=== PATIENT | female | born 1925 | race Caucasian/White ===

== ENCOUNTER 2016-09-01 09:33 | Observation (INO) | payer OTHER ==
--- NOTE | 2016-09-01 09:54 | EDPHY ---
H & P Stated Complaint: possible left hip dislocation, hx sx, happened twice before this month Time Seen by Provider: 09/01/16 09:44 HPI/ROS: CHIEF COMPLAINT: Recurrent left hip pain and deformity HISTORY OF PRESENT ILLNESS: The patient presents to the emergency department with recurrent left hip pain and deformity. The patient does have a prior history of a left hip replacement complicated by dislocation times to since her surgery in 2014. The patient reports that today she was getting up from a chair when she experienced a recurrent dislocation. She reports mild to moderate pain. She denies any acute numbness or weakness in her leg. She did not fall or sustain additional trauma. She reports her last dislocation was in 2015 and required a reduction under general anesthesia. The patient denies any additional acute medical complaints such as fever, chest pain, difficulty breathing or other concerns. REVIEW OF SYSTEMS: A comprehensive 10 point review of systems is otherwise negative aside from elements mentioned in the history of present illness. Source: Patient Exam Limitations: No limitations - Personal History Current Tetanus/Diphtheria Vaccine: Yes Current Tetanus Diphtheria and Acellular Pertussis (TDAP): Yes Tetanus Vaccine Date: WITHIN 10 YRS - Medical/Surgical History Hx Asthma: No Hx Chronic Respiratory Disease: No Hx Diabetes: No Hx Cardiac Disease: Yes Hx Renal Disease: No Hx Cirrhosis: No Hx Alcoholism: No Hx HIV/AIDS: No Hx Splenectomy or Spleen Trauma: No Other PMH: PMH:chronic afib, pacemaker ( medtronic), RA, pseudo gout, htn, left breast cancer. PSH: left hip sx, knee sx - Social History Smoking Status: Never smoked - Physical Exam Exam: General Appearance: Elderly female, no acute distress Head: Atraumatic Eyes: Pupils equal, round, reactive ENT, Mouth: No hemotympanum, no oral trauma Neck: Nontender, trachea midline Respiratory: No chest wall tender, subcutaneous air, lungs clear bilaterally Cardiovascular: Regular rate and rhythm Abdomen: Abdomen is soft and nontender, pelvis stable Skin: No lacerations, No abrasion Back: Kyphotic, no midline tenderness Extremities: Left leg held in internal rotation, shortened. 2+ dorsalis pedis and posterior tibial pulses noted in the left leg. Sensation and motor function intact to light touch and movement in the left foot Neurological: A&Ox3, normal motor function, normal sensory exam Constitutional: Initial Vital Signs Temperature (C) 36.6 C 09/01/16 09:33 Heart Rate 62 09/01/16 09:33 Respiratory Rate 18 09/01/16 09:33 Blood Pressure 169/92 H 09/01/16 09:33 O2 Sat (%) 94 09/01/16 09:33 O2 Delivery Mode Room Air O2 (L/minute) 2 Allergies/Adverse Reactions: Penicillins Allergy (Verified 09/01/16 11:17) Sulfa (Sulfonamide Antibiotics) Allergy (Verified 09/01/16 09:39) most antibiotics Allergy (Uncoded 07/25/14 13:57) Home Medications: Medication Instructions Recorded Benazepril HCl [Lotensin (*)] 20 mg PO DAILY 07/25/14 Calcium Carbonate [Tums 500MG (*)] 500 mg PO PRN PRN 07/25/14 Cholecalciferol Vit D3 [Vitamin D3 1,000 units PO BID 07/25/14 (*)] Vitamin B Complex [B Complex] 1 each PO DAILY 07/25/14 amLODIPine BESYLATE [Norvasc 2.5 2.5 mg PO HS 07/25/14 mg (*)] valACYclovir [Valtrex (*)] 500 mg PO BID PRN 07/25/14 Aspirin [Aspirin 81mg (*)] 81 mg PO HS 04/10/15 Omeprazole [Prilosec 20 mg] 20 mg PO DAILY PRN 04/10/15 Polyethylene Glycol 3350 [Miralax 17 gm PO DAILY 05/05/15 17 gm (*)] Carvedilol [Coreg] 6.25 mg PO BID 10/25/15 Diclofenac Sodium [Voltaren Gel] 1 yaya TP DAILY PRN 10/25/15 HYDROcodone/APAP 10/325 [[place] 1 tab PO Q4-6PRN PRN 10/25/15 10/325] Pyridoxine HCl [Vitamin B-6 100 mg 100 mg PO DAILY 10/25/15 (OTC)] buPROPion XL [Wellbutrin Xl] 150 mg PO DAILY 10/25/15 predniSONE 2.5 mg PO DAILY 10/25/15 Albuterol [Proventil Inhaler HFA 2 puffs IH Q4 PRN 09/01/16 (*)] Tears/Dextran 70/Hypromellose 1 drop EACHEYE Q2 PRN 09/01/16 [Natural Balance Tears (*)] Medical Decision Making - Diagnostics Imaging: Left hip x-ray: Anterior prosthetic left hip dislocation. ED Course/Re-evaluation: I reviewed the patient's past medical records including her ED visit from 2015. I did consult with Dr. Niranjan Diehl who is on-call for the patient's primary orthopedic surgeon Dr. Jesus Desouza. Dr. Diehl evaluated the patient in the emergency department. Given the fact she has an anterior dislocation in a fairly fragile construct he would prefer to perform this under general anesthesia. The patient will be kept in the emergency department with npo status. She will be taken to the operating room for conscious sedation and closed reduction. The patient will be admitted to the hospital the lack of immediate OR availability. Differential Diagnosis: Differential diagnosis considered includes prosthetic hip fracture, prosthetic hip dislocation, pelvic fracture, neurovascular injury Departure - Departure Disposition: [facility] Inpatient Acute Clinical Impression: Dislocation of hip, left, closed Condition: Good Referrals: Francine Chapin MD [Primary Care Provider] - As per Instructions
[2016-09-01] MEDS ORDERED: fentaNYL 100 MCG/2 ML INJ ONE ×3 (10:06→16:43)
[2016-09-01] MEDS ORDERED: KETAMINE 100 MG/10 ML SYR IVP ONE (10:06)
[2016-09-01] MEDS ORDERED: NS 1,000 ML IV SCH (12:45)
[2016-09-01] MEDS ORDERED: DICLOFENAC SODIUM TP PRN (14:06)
[2016-09-01] MEDS ORDERED: ALBUTEROL 60 PUFFS/8 GM MDI IH PRN (14:06)
[2016-09-01] MEDS ORDERED: PANTOPRAZOLE SODIUM 40 MG TAB PO PRN (14:06)
[2016-09-01] MEDS ORDERED: CALCIUM CARBONATE 500 MG CHEWABLE TAB PO PRN (14:06)
[2016-09-01] MEDS ORDERED: valACYclovir 500 MG TAB PO PRN (14:06)
[2016-09-01] MEDS ORDERED: TEARS/DEXTRAN 70/HYPROMELLOSE 15 ML OPHT.BTL EACHEYE PRN (14:06)
[2016-09-01] MEDS ORDERED: HYDROCORTISONE 100 MG/2 ML VIAL IVP ONE (14:27)
--- NOTE | 2016-09-01 14:35 | GHP ---
[f rep st] HISTORY AND PHYSICAL DATE OF ADMISSION: 09/01/2016 CHIEF COMPLAINT: Left hip pain, dislocation. HISTORY OF PRESENT ILLNESS: The patient is a pleasant 89-year-old female who presented to the emergency department earlier today with recurrent left hip pain sustained earlier today, when the patient reports she was getting up from a chair. She states that she does not recall the specific mechanism of injury, though having experienced recurrent dislocation in her left hip, this felt similar; however, she notes slightly more painful than before. The patient is status post left total hip arthroplasty performed by Dr. Desouza in 04/2015. She reports 2 episodes of dislocation on this affected hip, the last being in 2015, which required reduction under general anesthesia, again performed by Dr. Desouza. Today, she reports mild to moderate pain and denies any new onset numbness or tingling into her left leg. She denies sustaining any fall or additional trauma at the time of injury. She also denies any additional acute medical complaints such as fevers, chills, nausea or vomiting, chest pain, difficulty breathing, or any additional concerns. She does note one additional trip to the emergency room since her last dislocation, resulting from a fall where she sustained a head laceration, though she notes this was a mechanical fall and not related to any syncope. She has had no additional concerns or complaints at this time. PAST MEDICAL HISTORY: 1. Hypertension. 2. Osteoporosis. 3. Paroxysmal atrial fibrillation. 4. Implanted pacemaker. 5. Asthma. 6. Rheumatoid arthritis. 7. Pseudogout. 8. GERD. 9. Chronic kidney disease. 10. Chronic anemia. 11. History of multiple joint arthroplasties. PAST SURGICAL HISTORY: Patient reports a past surgical history significant for a foot surgery, hysterectomy, bilateral knee replacements, implanted pacemaker, wrist surgery, rotator cuff surgery, left proximal femur fixation, left total hip arthroplasty. CURRENT MEDICATIONS: Albuterol, amlodipine, aspirin 81 mg, benazepril, Wellbutrin, Tums, carvedilol, vitamin D3, Voltaren gel, [place] 10/325, omeprazole , MiraLAX, prednisone, vitamin B, Natural Balance Tears, Valtrex, and a B complex vitamin. ALLERGIES: Patient reports an allergy to penicillin and sulfa medications. She denies any allergy to metals. SOCIAL HISTORY: Patient denies any current tobacco use. Patient denies any current alcohol consumption. Patient denies any current recreational drug use. The patient notes that she lives alone at [facility], but does have family in [place], noting her sister does not live far. She reports that she does not have anyone who can care for her overnight. REVIEW OF SYSTEMS: A 10-point review of systems was reviewed today with no additional concerns, complaints, or abnormal findings not noted in the HPI or PMH. PHYSICAL EXAMINATION: VITALS: Blood pressure 159/94, heart rate 74 bpm, respirations 18 per minute, O2 sats 98% on 2 LO2, temperature 36.9 degrees Celsius. GENERAL: Patient is a thin, elderly female who presents in mild distress. Patient appears to be in mild to moderate pain when she tries to move her left hip, but otherwise does not appear to be in any significant discomfort. HEENT: NCAT. EOMI. PERRLA. Ears and nares are patent and without discharge. OP is clear. NECK: NTTP, no cervical LAD noted. Trachea midline. RESPIRATORY: CTAB. No increased WOB noted. CARDIOVASCULAR: RRR. ABDOMEN: Soft, NT/ND. EXTREMITIES: Examination of the left lower extremity reveals leg held in slight internal rotation and shortened in appearance. No significant swelling, discoloration is noted. Patient has an intact dorsalis pedis and posterior tibialis pulses in the left lower extremity, equal compared bilaterally, 2+. The patient is intact to light touch, sensation distally and is able to move her left foot. Examination of the right lower extremity is unremarkable. SKIN: Please see above dictation concerning left lower extremity. Otherwise warm and dry. NEUROLOGIC: A and O x3, appropriate mood and affect. Speech is noted to be fluid and fluent. RADIOGRAPHS: Two views of the left hip are reviewed today showing an anterior dislocation of the left hip, status post left hip arthroplasty. No acute fracture is identified. Intact surgical hardware without signs of loosening of proximal femoral fixation. ASSESSMENT: Left hip anterior dislocation, recurrent. Patient is status post left total hip arthroplasty. PLAN: This patient's case and radiographs were reviewed with Dr. Diehl today, who also the patient in clinic. At this time,the patient will be scheduled for a closed reduction to be performed likely under conscious sedation in the operating room. The patient will be likely admitted to the hospital for at least 1 midnight stay, as she does not have anyone who can care for her at home. Treatment options were discussed with the patient today, including the potential need for surgical revision. After a lengthy discussion of the proposed plan, the patient has agreed to proceed with the closed reduction in the operating room, and is tentatively scheduled at 1600 today. Signed informed consent was obtained. All the patient's questions have been answered today, her concerns addressed. She has relayed her understanding of the current care plan and education presented today, and appears pleased with the care she has received today. A hospitalist consult has been ordered due to the patient's age and past medical history status, and to obtain preoperative clearance and for assistance in perioperative management. Their consult is much appreciated. It has been my pleasure to assist in the care of this patient. /[id number]/MODL MTDD
[2016-09-01 14:59] LABS: HEMATOCRIT 30.5 % (38.0-47.0); HEMOGLOBIN 9.7 g/dL (12.6-16.3)
--- NOTE | 2016-09-01 15:05 | GCON ---
[f rep st] CONSULTATION DATE OF CONSULTATION: 09/01/2016 REASON FOR CONSULTATION: I was asked by Dr. Diehl to see the patient in regard to her medical proble ms, including rheumatoid arthritis, and atrial fibrillation. HISTORY OF PRESENT ILLNESS: This is an 89-year-old female who had her left hip replaced in 2014. T mayra, she was sitting on a chair, got to stand up and felt her hip dislocate. This is the 3rd time this has happened since this was replaced. She believes it is the chair that she was sitting on, an d she plans to get rid of the chair as this happened once previously. One previous time she needed to have it reduced in the operating room, the other itself reduced at home. She has no numbness or weakness down her leg, though it is quite painful. At baseline, she is able to walk around the bloc k with a walker. She has been very active all her life. She lives independently at [facility]. S he is taking an aspirin for atrial fibrillation. PAST MEDICAL/SURGICAL HISTORY: 1. Atrial fibrillation, status post pacemaker. 2. Rheumatoid arthritis, on chronic steroids. 3. Pseudogout. 4. Hypertension. 5. History of breast cancer. 6. Mitral valve prolapse. 7. Left hip replacement. 8. Bilateral TKAs. MEDICATIONS: Please see medication reconciliation. ALLERGIES: Penicillin, sulfa and many other antibiotics. Keflex and ciprofloxacin she notably does not have an allergy too. FAMILY HISTORY: Sister has hypertension. SOCIAL HISTORY: She lives at [facility]. She does not drink or smoke. She was an avid skier, she quit smoking at age 71. Her favorite mountain was [place]. REVIEW OF SYSTEMS: 10-point review of systems is conducted and is negative except per HPI. PHYSICAL EXAM: VITAL SIGNS: Blood pressure 170/86, heart rate 62, respiration rate 18, saturating 95% on room air, temperature is 36.8. GENERAL: The patient is a pleasant elderly female who appear s comfortable, in no acute distress. HEENT: Shows her to be normocephalic, atraumatic. CARDIOVASC ULAR: Shows her to be irregularly irregular. There is no murmurs, rubs, or gallops. PULMONARY: S hows her to be in no respiratory distress. She is breathing comfortably. LUNGS: Clear to ausculta tion bilaterally. ABDOMEN: Soft, nontender, nondistended. SKIN: Shows no rash. : Shows no Fo lisa. NEUROLOGIC: Shows her to be alert and oriented x3. She is moving all extremities. PSYCHIATR IC: Exam shows a normal mood and affect. EXTREMITIES: Shows her left leg to be internally rotated . She has sensation intact. Her foot is warm. She has motor intact in her left foot. LABS: These have been ordered and are pending. I reviewed her last INR which was 2.05 back in 2015 . DATA: 1. I personally viewed and interpreted her chest x-ray. This shows significant dextro- and levosco liosis, normal heart size. She has a pacemaker in place. She has significant gas in her stomach an d small bowel. I see nothing acute. 2. Hip x-ray, which I personally reviewed and interpreted, shows left prostatic hip with an anterio r dislocation. 3. I reviewed her chart, including her last admission in 2014 where she was treated post LAY for po stoperative pain. IMPRESSION AND PLAN: An 89-year-old female with a left prosthetic hip dislocation. 1. Left prosthetic hip dislocation: Plan: Operative fixation given her age and other medical prob lems. She is able to attain more than 4 METS at baseline, I think she is reasonable risk for the op erating room at this point. Will continue her beta-elysia perioperatively. 2. Atrial fibrillation status post pacemaker: She is rate controlled. Continue her Coreg and aspi rin for her anticoagulation. 3. Rheumatoid arthritis on chronic steroids: Will give her 1 higher dose of hydrocortisone of 50 m g and follow. If she is hypotensive postoperatively, she may be more steroids. 4. Will follow up on her labs that have been ordered. 5. Will follow up on her EKG which has been ordered. 6. Code status: She would like to be a [id number]. I have placed this in her chart. 7. Venous thromboembolism risk: If she becomes an inpatient. She should get low-dose Lovenox. Ot herwise I will not start any prophylaxis at this point. /[id number]/MODL
[2016-09-01 15:09] LABS: INR 1.09 (0.83-1.16)
[2016-09-01 15:21] LABS: ANION GAP 15 mEq/L (8-16); CALCIUM 9.8 mg/dL (8.5-10.4); CARBON DIOXIDE 22 mEq/l (22-31); CHLORIDE 102 mEq/L (97-110); CREATININE 1.1 mg/dL (0.6-1.0); GLOMERULAR FILTRATION RATE 47; GLUCOSE 94 mg/dL (70-100); POTASSIUM 4.1 mEq/L (3.5-5.2); SODIUM 139 mEq/L (134-144)
[2016-09-01] MEDS: CARVEDILOL 6.25 MG TAB PO SCH ×2 (15:33→21:00)
[2016-09-01] MEDS ORDERED: HYDROCORTISONE 100 MG/2 ML VIAL ONE (15:37)
--- NOTE | 2016-09-01 15:48 | CPEKG ---
Heart Rate: 61 RR Interval: 984 P-R Interval: 144 QRSD Interval: 76 QT Interval: 420 QTC Interval: 423 QRS [place]: -38 T Wave [place]: 41 EKG Severity - ABNORMAL ECG - EKG Impression: ATRIAL-PACED COMPLEXES EKG Impression: LEFT AXIS DEVIATION Electronically Signed By: Yordy Bull 02-Sep-2016 18:26:26
[2016-09-01] MEDS ORDERED: PROPOFOL 200 MG/20 ML VIAL ONE (17:04)
[2016-09-01] MEDS ORDERED: LIDOCAINE 2% 5 ML SDV ONE (17:04)
[2016-09-01] MEDS ORDERED: oxyCODONE IR 5 MG TAB PO PRN (17:27)
[2016-09-01] MEDS ORDERED: PROMETHAZINE HCL 25 MG SUPPR PR PRN (17:27)
[2016-09-01] MEDS ORDERED: traMADol 50 MG TAB PO PRN ×2 (17:27→18:00)
[2016-09-01] MEDS ORDERED: ONDANSETRON DISINTEGRATING 4 MG TAB PO PRN (17:27)
[2016-09-01] MEDS ORDERED: DIPHENOXYLATE/ATROPINE LOMOTIL 1 TAB PO PRN (17:27)
[2016-09-01] MEDS ORDERED: BISACODYL 10 MG SUPP PR PRN (17:27)
[2016-09-01] MEDS ORDERED: METOCLOPRAMIDE 10 MG/2 ML VIAL IVP PRN (17:27)
[2016-09-01] MEDS ORDERED: TEMAZEPAM 15 MG CAP PO PRN (17:27)
[2016-09-01] MEDS ORDERED: MAGNESIUM HYDROXIDE 30 ML UDCUP PO PRN (17:27)
[2016-09-01] MEDS ORDERED: ONDANSETRON 4 MG/2 ML VIAL IVP PRN (17:27)
[2016-09-01] MEDS ORDERED: diphenhydrAMINE 25 MG CAP PO PRN (17:27)
[2016-09-01] MEDS ORDERED: CYCLOBENZAPRINE 10 MG TAB PO PRN (17:27)
[2016-09-01] MEDS ORDERED: PHARMACY PAIN CONSULT 1 EA MISC PRN (17:27)
[2016-09-01] MEDS ORDERED: LR 1,000 ML IV SCH (17:30)
[2016-09-01] MEDS ORDERED: HYDROmorphONE/DILAUDID 4 MG TAB PO PRN (17:56)
[2016-09-01] MEDS ORDERED: ACETAMINOPHEN 325 MG TAB PO PRN (18:00)
--- NOTE | 2016-09-01 18:15 | GOP ---
[f rep st] OPERATIVE REPORT DATE OF OPERATION: 09/01/2016 SURGEON: Niranjan Diehl MD PREOPERATIVE DIAGNOSIS: Anterior dislocation, left total hip components. POSTOPERATIVE DIAGNOSIS: Anterior dislocation, left total hip components. PROCEDURE PERFORMED: FINDINGS: DESCRIPTION OF PROCEDURE: PROCEDURE PERFORMED: Closed reduction, left anterior total hip dislocation. INDICATIONS FOR SURGERY: This is an 89-year-old woman who has had a total hip replacement on the le ft side. This has had at least one prior anterior dislocation that was treated by Dr. Jesus Desouza , who was the surgeon who placed the components. She sustained an additional anterior dislocation t mayra and was brought into the [facility] Emergency Department where this was identif ied radiographically. She had just eaten breakfast, and we then waited until her stomach was adequa tely empty for a general anesthetic. She was placed under a general anesthetic, and her hip was red uced. NARRATIVE DESCRIPTION OF THE CASE: After routinely checking the patient's identification and consen t, and the successful induction of mask general anesthetic, the patient's left hip was imaged under the large FluoroScan unit. We proceeded with a longitudinal traction, abduction, a lateral-directed force on the proximal thigh with external rotation and then internal rotation as the head came over the anterior wall of the acetabulum. It essentially snapped back into the acetabulum. Leg lengths were normal. Leg length rotation was symmetric, and when I ranged her hip into flexion or extensio n, I was unable to re-dislocate this. From a radiographic standpoint, it did not appear that the fe moral head was seated fully within the acetabular shell compared to prior x-rays which we compared i n the operating room. There is possibly some soft tissue interposition, but the hip was stable. As such, we allowed the patient to awaken. She will have followup treatment with Dr. Jesus maria r her recurrent dislocation. /[id number]/MODL
[2016-09-01] MEDS: HYDROCODONE/APAP 10/325 TAB PO PRN (20:57)
[2016-09-01] MEDS ORDERED: ASPIRIN 81 MG CHEWABLE TAB PO SCH (21:00)
[2016-09-01] MEDS: CHOLECALCIFEROL VIT D3 1,000 UNITS TAB PO SCH (21:01)
[2016-09-01] MEDS: FAMOTIDINE 20 MG TAB PO SCH (21:02)
[2016-09-01] MEDS: SENNOSIDES/DOCUSATE SODIUM TAB PO SCH (21:02)
[2016-09-01 21:03] VITALS: RESP 16
[2016-09-02] MEDS: HYDROCODONE/APAP 10/325 TAB PO PRN ×3 (01:55→14:43)
[2016-09-02 05:12] LABS: HEMATOCRIT 29.3 % (38.0-47.0); HEMOGLOBIN 9.2 g/dL (12.6-16.3)
[2016-09-02 06:07] LABS: COLOR YELLOW; LEUKOCYTE ESTERASE,URINE 2+ (NEGATIVE); NITRITE,URINE NEGATIVE (NEGATIVE)
[2016-09-02 06:13] LABS: BACTERIA 4+ /hpf (NONE SEEN); WBC,URINE 50-182 /hpf (0-3)
[2016-09-02 07:56] VITALS: BP 173/96; PULSE 60; TEMP 98.4; O2SAT 94
--- NOTE | 2016-09-02 08:29 | HOSPPROG ---
Hospitalist Progress Note Assessment/Plan: Patient is an 89 y/o woman who had her left hip replaced in 2014. Her hip dislocated with standing/ this is the 3rd time this has occurred. At baseline, she is independent/today is my first encounter with the patient. Chart reviewed. *Left prosthetic hip dislocation -s/p reduction on 09/01 -doing well/ ambulating in hallways *Atrial fibrillation -s/p pacermaker/rate controlled -coreg and aspirin *RA -steroids -was given an IV dose yesterday -no hypotension *Pyuria -symptomatic -asked for ua to be cultured -patient says keflex doesn't help, but cipro does -will start treatment and her PCP needs to f/u with urine cx and sensitivities/ has been sensitive and resistant to cipro *anemia -stable *renal insuff -close to baseline *DVT prophylaxis: LMWH *Plan: dc per ortho Subjective: Della is feeling well/ no complaints. Objective: Vital Signs Temp Pulse Resp BP Pulse Ox 36.9 C 60 16 173/96 H 94 09/02/16 07:56 09/02/16 07:56 09/02/16 07:56 09/02/16 07:56 09/02/16 07:56 Laboratory Results 09/02/16 04:38 09/01/16 14:45 09/01/16 09/02/16 09/03/16 05:59 05:59 05:59 Intake Total 1775 Output Total 500 Balance 1275 PT 14.0 SEC (12.0-15.0) 09/01/16 14:45 INR 1.09 (0.83-1.16) 09/01/16 14:45 - Physical Exam Constitutional: no apparent distress, appears nourished, not in pain, other ( thin) Eyes: PERRL Ears, Nose, Mouth, Throat: hard of hearing Respiratory: no respiratory distress Skin: warm Musculoskeletal: generalized weakness Neurologic: AAOx3 Psychiatric: interacting appropriately ICD10 Worksheet Patient Problems: Problems Problem Status Onset Dislocation of hip, left, closed Acute Arthritis, rheumatoid Acute Constipation Acute Femur fracture Acute Left hip pain Acute MRSA (methicillin resistant Staphylococcus aureus) Acute 01/18/16
[2016-09-02] MEDS ORDERED: ENOXAPARIN 40 MG/0.4 ML SYR SC SCH (09:00)
[2016-09-02] MEDS ORDERED: predniSONE 5 MG TAB PO SCH (09:00)
[2016-09-02] MEDS ORDERED: VITAMIN B COMPLEX 1 EA CAP/TAB PO SCH (09:00)
[2016-09-02] MEDS ORDERED: buPROPion XL 150 MG TAB PO SCH (09:00)
[2016-09-02] MEDS ORDERED: ENOXAPARIN 30 MG/0.3 ML SYR SC SCH (09:00)
[2016-09-02] MEDS ORDERED: POLYETHYLENE GLYCOL 3350 17 GM PKT PO SCH (09:00)
[2016-09-02] MEDS: CARVEDILOL 6.25 MG TAB PO SCH (09:47)
[2016-09-02] MEDS: CHOLECALCIFEROL VIT D3 1,000 UNITS TAB PO SCH (09:47)
[2016-09-02] MEDS: SENNOSIDES/DOCUSATE SODIUM TAB PO SCH (09:48)
[2016-09-02] MEDS: FAMOTIDINE 20 MG TAB PO SCH (09:48)
[2016-09-02] MEDS ORDERED: CIPROFLOXACIN 250 MG TAB PO SCH (10:00)
--- NOTE | 2016-09-02 11:44 | SOAPPROG ---
[facility] Progress Note Assessment/Plan: Assessment/Plan: L hip recurrent dislocations s/p LAY in 05/[address] Desouza s/p closed reduction performed by Dr. Diehl on 09/02/2016 -Cont current PO pain meds -Cont PT/OT -Cont SCDs and TEDs for VTE mechanical prophylaxis -Cont Lovenox for VTE chemoprophylaxis - pt is ambulating well, and will be d/c on ASA 81 mg for cont chemoprophylaxis -Ok to d/c to home, pt will follow up w/ Dr. Desouza as an outpatient. 09/02/16 11:39 Subjective: Pt seen up in bed. She states she has no significant pain today, and is much improved since yesterday. She denies any new nonset n/t in her BLE. She states she has been up and ambulating well, denying any instability or increase in pain. She denies any vazquez/f/c/n/v, cp/ sob, abd pain, or bilat post calf pain. She states she is tolerating her medications and diet well. She is anxious to go home, and feels that she is able to manage independently at [facility]. She has no additional concerns or complaints at this time. Objective: Vital Signs Temp Pulse Resp BP Pulse Ox 36.9 C 60 16 173/96 H 94 09/02/16 07:56 09/02/16 07:56 09/02/16 07:56 09/02/16 07:56 09/02/16 07:56 Laboratory Results 09/02/16 04:38 09/01/16 14:45 09/01/16 09/02/16 09/03/16 05:59 05:59 05:59 Intake Total 1775 Output Total 500 Balance 1275 PT 14.0 SEC (12.0-15.0) 09/01/16 14:45 INR 1.09 (0.83-1.16) 09/01/16 14:45 Seen up in bed. A&Ox3, appropriate mood and affect, pleasant and cooperative w / exam. Non-toxic in appearance. LLE is w/out significant swelling, discoloration or deformity. Thigh compartments are supple. Pt moves leg well. Post calves are NTTP, neg Levar's bilat. DNVI BLE. ICD10 Worksheet Patient Problems: Problems Problem Status Onset Dislocation of hip, left, closed Acute Arthritis, rheumatoid Acute Constipation Acute Femur fracture Acute Left hip pain Acute MRSA (methicillin resistant Staphylococcus aureus) Acute 01/18/16
== END 2016-09-02 15:27 | disposition home or self-care (01) ==
LOC: EDUNIT# → F3N 12:38
PROVIDERS: ADMIT Orthopaedic Surgery Hand Surgery; ATTEND Orthopaedic Surgery Hand Surgery
PROC: 0SSBXZZ Reposition Left Hip Joint, External Approach (ICD-10-PCS; principal; 2016-09-01 17:06)
DX: T84.021A Dislocation of internal left hip prosthesis, initial encounter (principal); I48.2 Chronic atrial fibrillation; M06.9 Rheumatoid arthritis, unspecified; N39.0 Urinary tract infection, site not specified; D64.9 Anemia, unspecified; M81.0 Age-related osteoporosis without current pathological fracture; J45.909 Unspecified asthma, uncomplicated; K21.9 Gastro-esophageal reflux disease without esophagitis; N18.9 Chronic kidney disease, unspecified; I12.9 Hypertensive chronic kidney disease with stage 1 through stage 4 chronic kidney disease, or unspecified chronic kidney disease; Z96.653 Presence of artificial knee joint, bilateral; Z88.0 Allergy status to penicillin; Z88.2 Allergy status to sulfonamides; Z79.01 Long term (current) use of anticoagulants; Z79.82 Long term (current) use of aspirin; Z79.52 Long term (current) use of systemic steroids; Z85.3 Personal history of malignant neoplasm of breast; Z95.0 Presence of cardiac pacemaker
CPT/HCPCS: 27266; 71010; 73502; 76001; 93005; 97161; 97165; G0378; G8978; G8979; G8980; G8987; G8988; G8989; J1650; J2704; J3010

== ENCOUNTER 2016-09-12 10:12 | Inpatient (IN) | payer OTHER ==
--- NOTE | 2016-09-12 10:19 | EDPHY ---
HPI/HX/ROS/PE/MDM Narrative: CHIEF COMPLAINT: Left hip pain HPI: The patient is an 89-year-old female with a history of left hip arthroplasty who presents with left hip pain and rotation. She reports that she was bending over her chair this morning when she felt her hip dislocate. This is the 3rd time this has happened to her. She can sometimes stand up to relocate the hip but this did not work this morning. She denies numbness, weakness, paresthesias, or other complaints. REVIEW OF SYSTEMS: Aside from elements discussed in the HPI, a comprehensive 10-point review of systems was reviewed and is negative. PMH: Hypertension, left hip arthroplasty, breast cancer. SOCIAL HISTORY: Lives in [place]. PHYSICAL EXAM: General: Patient is alert, in no acute distress. ENT: Eyes are normal to inspection. ENT inspection normal. Neck: Normal inspection. Full range of motion. Respiratory: No respiratory distress. Breath sounds normal bilaterally. Cardiovascular: Regular rate and rhythm. Strong peripheral pulses. Abdomen: The abdomen is nontender to palpation. There are no peritoneal signs. There are normal bowel sounds. Back: Normal to inspection. No tenderness to palpation. Skin: Normal color. No rash. Warm and dry. Extremities: Left leg internally rotated and shortened. Neuro: Oriented x3. Normal motor function. Normal sensory function. Portions of this note were transcribed by an ED scribe. I personally performed the history, physical exam, and medical decision making; and confirm the accuracy of the information in the transcribed note. ED Course: Left hip x-ray ordered. Patient last ate a small breakfast at 0730 this morning. 1127: Consulted with Dr. Desouza, orthopedics. He will take the patient to the operating room. Study: Left hip X-ray Indication: Dislocation. Results: I viewed the images myself on the PACS system. My interpretation of the images is: left hip dislocation. The radiologist interpretation is pending at the time of this dictation. MDM: This patient presents with recurrent hip dislocation, which will require reduction in the OR. I see no signs of other trauma. General Time Seen by Provider: 09/12/16 10:13 Initial Vital Signs: Initial Vital Signs Temperature (C) 36.8 C 09/12/16 10:15 Heart Rate 62 09/12/16 10:15 Respiratory Rate 16 09/12/16 10:15 Blood Pressure 132/84 H 03/29/17 10:15 O2 Sat (%) 95 09/12/16 10:15 O2 Delivery Mode Room Air Allergies/Adverse Reactions: Penicillins Allergy (Verified 09/12/16 10:30) Sulfa (Sulfonamide Antibiotics) Allergy (Verified 09/12/16 10:30) most antibiotics Allergy (Uncoded 07/25/14 13:57) Home Medications: Medication Instructions Recorded Amlodipine Besylate 09/12/16 Aspirin 09/12/16 Benazepril HCl 09/12/16 Carvedilol 09/12/16 Folic Acid 09/12/16 Lutein 09/12/16 Hinkle 5/325 (*) 09/12/16 Prevacid 09/12/16 Selenium 09/12/16 VITAMIN D 09/12/16 Zinc 09/12/16 buPROPion 09/12/16 predniSONE 09/12/16 Departure - Departure Disposition: To OP Cath/Surgery Clinical Impression: Hip dislocation, left Qualifiers: Encounter type: initial encounter Qualified Code(s): S73.005A - Unspecified dislocation of left hip, initial encounter Condition: Fair Report Scribed for: Payam Landa Report Scribed by: Emeka Garcia Date of Report: 09/12/16 Time of Report: 10:19
[2016-09-12 12:03] LABS: % IMMATURE GRANULYOCYTES 0.3 % (0.0-1.1); ABSOLUTE IMMATURE GRANULOCYTES 0.01 10^3/uL (0.00-0.10); ADD DIFF? NO; ADD MORPH? NO; ADD SCAN? NO; ATYPICAL LYMPHOCYTE FLAG 0 (0-99); FRAGMENT RBC FLAG 0 (0-99); HEMOGLOBIN 9.7 g/dL (12.6-16.3); LEFT SHIFT FLG 0 (0-99); LIPEMIA HEMOLYSIS FLAG 80 (0-99); MEAN CELL HEMOGLOBIN 28.3 pg (27.9-34.1); MEAN CELL HEMOGLOBIN CONCENTR. 31.3 g/dL (32.4-36.7); MEAN CELL VOLUME 90.4 fL (81.5-99.8); MEAN PLATELET VOLUME 9.2 fL (8.7-11.7); PLATELET CLUMPS FLAG 10 (0-99); PLATELET COUNT 232 10^3/uL (150-400); RED BLOOD CELL COUNT 3.43 10^6/uL (4.18-5.33); RED CELL DISTRIBUTION WIDTH 17.1 % (11.5-15.2)
[2016-09-12 12:18] LABS: ANION GAP 14 mEq/L (8-16); CALCIUM 9.9 mg/dL (8.5-10.4); CARBON DIOXIDE 24 mEq/l (22-31); CHLORIDE 101 mEq/L (97-110); CREATININE 1.5 mg/dL (0.6-1.0); GLOMERULAR FILTRATION RATE 33; GLUCOSE 109 mg/dL (70-100); POTASSIUM 4.3 mEq/L (3.5-5.2); SODIUM 139 mEq/L (134-144)
[2016-09-12] MEDS ORDERED: LIDOCAINE 2% 5 ML SDV ONE (12:30)
[2016-09-12] MEDS ORDERED: PROPOFOL 200 MG/20 ML VIAL ONE (12:30)
[2016-09-12] MEDS ORDERED: METOCLOPRAMIDE 10 MG/2 ML VIAL IVP PRN (13:17)
[2016-09-12] MEDS ORDERED: CYCLOBENZAPRINE 10 MG TAB PO PRN (13:17)
[2016-09-12] MEDS ORDERED: PROMETHAZINE HCL 25 MG SUPPR PR PRN (13:17)
[2016-09-12] MEDS ORDERED: TEMAZEPAM 15 MG CAP PO PRN (13:17)
[2016-09-12] MEDS ORDERED: oxyCODONE IR 5 MG TAB PO PRN (13:17)
[2016-09-12] MEDS ORDERED: diphenhydrAMINE 25 MG CAP PO PRN (13:17)
[2016-09-12] MEDS ORDERED: ONDANSETRON DISINTEGRATING 4 MG TAB PO PRN (13:17)
[2016-09-12] MEDS ORDERED: ONDANSETRON 4 MG/2 ML VIAL IVP PRN (13:17)
[2016-09-12] MEDS ORDERED: DIPHENOXYLATE/ATROPINE LOMOTIL 1 TAB PO PRN (13:17)
[2016-09-12] MEDS ORDERED: LR 1,000 ML IV SCH ×2 (13:30)
--- NOTE | 2016-09-12 14:27 | GOP ---
[f rep st] OPERATIVE REPORT DATE OF OPERATION: 09/12/2016 SURGEON: Jesus Desouza MD ANESTHESIA: General. PREOPERATIVE DIAGNOSIS: Periprosthetic dislocation, left hip. POSTOPERATIVE DIAGNOSIS: Periprosthetic dislocation, left hip. PROCEDURE PERFORMED: Left hip reduction under fluoroscopy. FINDINGS: DESCRIPTION OF PROCEDURE: The patient taken to the operating room, administered general anesthesia. Placed in supine position. The left hip was positioned under fluoroscopy. Using a flexion technical internship al rotation distraction maneuver, we were able to relocate the hip. Despite being relocated, the fe moral head was not feeding deeply within the acetabulum. Further re-dislocation relocation efforts produced the same result. We therefore elected to leave this in the position it was in. Postoperat lexy films were requested in recovery room. She was placed in an abduction pillow. COMPLICATIONS: None. /[id number]/MODL
[2016-09-12 14:32] LABS: HEMATOCRIT 32.2 % (38.0-47.0); HEMOGLOBIN 10.2 g/dL (12.6-16.3)
[2016-09-12] MEDS ORDERED: oxyCODONE IR 5 MG TAB ONE (14:33)
[2016-09-12 14:41] LABS: INR 1.03 (0.83-1.16); PROTIME(PATIENT) 13.4 SEC (12.0-15.0)
--- NOTE | 2016-09-12 15:57 | GCON ---
[f rep st] CONSULTATION MEDICINE CONSULTATION. DATE OF CONSULTATION: 09/12/2016 CHIEF COMPLAINT: Left hip dislocation. HISTORY OF PRESENT ILLNESS: The patient is an 89-year-old female, with a history of hypertension, a trial fibrillation, and a recent left total hip arthroplasty, who presented to the emergency departm ent today after suffering her third hip dislocation since her recent hip arthroplasty performed 2016. She bent over to tie her shoes, and felt her hip dislocate. She presented to the emerg ency department with significant pain and a rotation of her left hip. During her prior dislocation events she was able to stand up and the hip relocated spontaneously. This was not successful today, thus she came to the ER. She was found to be neurovascularly intact, with no paresthesias, weaknes s or numbness. She was admitted to the hospital by Dr. Desouza and taken to the operating room for a left hip reduction. She is admitted to the hospital for further management, and a possible repeat s urgery for stabilization. PAST MEDICAL HISTORY: 1. Hypertension. 2. Paroxysmal atrial fibrillation. 3. Osteoporosis. 4. History of pacemaker. 5. Asthma. 6. Rheumatoid arthritis. 7. Pseudogout. 8. GERD. 9. Chronic kidney disease. 10. Chronic anemia. 11. History of multiple joint arthroplasties. PAST SURGICAL HISTORY: 1. Left hip arthroplasty, September 01, 2016. 2. Foot surgery. 3. Hysterectomy. 4. Bilateral knee replacements. 5. Pacemaker. 6. Wrist surgery. 7. Rotator cuff surgery. 8. Left proximal femur fixation. MEDICATIONS: Please see [facility] for a complete, updated outpatient medication list. ALLERGIES: Penicillin and sulfa. SOCIAL HISTORY: Patient lives at an independent living facility at [facility], she has family near by. She is a lifetime nonsmoker, reports rare alcohol use. REVIEW OF SYSTEMS: A 10-point review of systems is obtained, is negative except as per HPI. OBJECTIVE: VITAL SIGNS: Patient is examined in the PACU as she is immediately postoperative. Her current vital signs, temperature is 36.8, blood pressure 177/86, heart rate 62, respiratory rate 16, 98% on room air. GENERAL: The patient is awake, alert, oriented, in no acute distress. HEENT: H ead is atraumatic, normocephalic. Pupils equal, round, react to light. Extraocular muscles are int act. Oropharynx clear. Mucous membranes are moist. NECK: Supple. There is no JVD. HEART: Regu lar rate and rhythm. LUNGS: Clear to auscultation bilaterally. ABDOMEN: Soft, nondistended, nont latisha with normoactive bowel tones. EXTREMITIES: Without cyanosis, clubbing, or edema. There is n o abnormal rotation of her left hip. EXTREMITIES: She has 2+ peripheral pulses palpable in the low er extremities. Extremities are warm. NEUROLOGIC: Exam is grossly nonfocal. LABORATORY DATA: CBC on arrival reveals a normal white count. Postoperative hemoglobin is 10.2. B asic metabolic panel reveals normal electrolytes, creatinine of 1.5, glucose 109, INR is 1.03. Hip x-ray shows a left total hip arthroplasty with dislocation. Pelvis x-ray post reduction shows reduction of the left hip dislocation. ASSESSMENT AND PLAN: The patient is an 89-year-old female with multiple medical problems who presen ts to the emergency department 11 days status post left total hip arthroplasty with acute left hip d islocation. 1. Periprosthetic hip dislocation. Patient is taken to the OR by Dr. Desouza and underwent left hip reduction. I evaluated her in the PACU. She has no pain at this time. She will be admitted to the hospital. It sounds as though Dr. Desouza is considering returning to the operating room for stabili zation and prevention of further dislocations as this was her third dislocation since her recent alfred ángela. Defer further surgical management to the orthopedic team. 2. Hypertension. This is generally well-controlled. We will continue her outpatient antihypertens ernestine once her medication reconciliation is completed. She is a bit hypertensive in the PACU, so we will add some p.r.n. hydralazine if needed. 3. Chronic kidney disease. It seems her baseline creatinine in 2016 has ranged from 1.4 to 1.5, th ough it was as low as 1.1 earlier this month. 4. Paroxysmal atrial fibrillation. She has a pacemaker, and her most recent EKG shows atrial paced complexes. We will check an EKG perioperatively, and continue her aspirin for CVA prophylaxis. 5. Rheumatoid arthritis. It looks as though the patient is on chronic prednisone. This may have c ontributed to her diagnosis of osteoporosis. We will continue her current outpatient dose once her med rec is completed. 6. Asthma. The patient has no evidence of acute exacerbation, we will continue p.r.n. albuterol as needed. 7. Chronic anemia. Her hemoglobin is at or above baseline. We will repeat a hemoglobin and hemato crit in the morning, given expected blood loss postoperatively. 8. Deep venous thrombosis prophylaxis. We will start Lovenox once she is 24 hours postoperative, i f okay with her surgical team. Will defer for now given that the patient reports possible plans ret urn to the OR. DISPOSITION: Patient admitted to inpatient status, as she will likely require greater than 48 hours hospitalization for recovery, and possible repeat surgery. PT/OT evaluations will be requested. /[id number]/MODL
[2016-09-12] MEDS ORDERED: hydrALAZINE 25 MG TAB PO PRN (16:07)
--- NOTE | 2016-09-12 16:08 | CPEKG ---
Heart Rate: 60 RR Interval: 1000 P-R Interval: 148 QRSD Interval: 80 QT Interval: 416 QTC Interval: 416 QRS [place]: -38 T Wave [place]: 16 EKG Severity - ABNORMAL ECG - EKG Impression: ATRIAL-PACED RHYTHM EKG Impression: LEFT AXIS DEVIATION EKG Impression: PROBABLE LEFT VENTRICULAR HYPERTROPHY EKG Impression: No significant change from September 01, 2016 Electronically Signed By: Beltran Weeks 12-Sep-2016 20:20:27
[2016-09-12] MEDS ORDERED: D5W 1/4 NS 1,000 ML IV SCH (16:30)
[2016-09-12] MEDS ORDERED: TEARS/DEXTRAN 70/HYPROMELLOSE 15 ML OPHT.BTL EACHEYE PRN (17:35)
[2016-09-12] MEDS ORDERED: HYDROmorphONE/DILAUDID 1 MG/ML SYR IVP PRN (17:38)
[2016-09-12] MEDS ORDERED: ceFAZolin 2 GM/DEXTROSE 100 ML IV ONE (17:39)
--- NOTE | 2016-09-12 17:52 | GHP ---
[f rep st] PREOP HISTORY AND PHYSICAL DATE OF ADMISSION: 09/12/2016 ADMISSION DIAGNOSIS: Dislocation of left total hip arthroplasty. HISTORY OF PRESENT ILLNESS: The patient is an 89-year-old female who underwent left total hip arthr oplasty several years ago. She has had other issues with the left lower extremity including osteoar thritis of the left knee. Has undergone a primary knee arthroplasty. She subsequently had a fractu re above this requiring a revision hinged total knee arthroplasty. She had weakness between the 2 i mplants and because of this she had bone grafting with a femoral strut graft between the 2 implants. She had done well until a couple weeks ago when she dislocated her hip. This was relocated by my partner, Dr. Diehl. She was discharged home. He was concerned about the integrity of the relocation at that time. She was to see me in the office today, but prior to coming in, she re-dislocated the hip putting her shoes on. She presented to the emergency room. REVIEW OF SYSTEMS: Negative. PAST MEDICAL HISTORY: Positive for hypertension, left total hip arthroplasty, breast cancer, osteoa rthritis of the knees status post total knee arthroplasty, supracondylar femur fracture status post revision, total knee arthroplasty with hinge implant. She resides in an extended care facility. PHYSICAL EXAM: Patient is alert, oriented and cooperative with exam. HEENT: Within normal limits. CHEST: Clear to auscultation. CARDIAC: Regular rate and rhythm. Pulses 2+ dorsalis pedis, post erior tibialis. Sensation is intact in lower extremities. ABDOMEN: Bowel sounds positive. Left l ower extremity is internally rotated and shortened. ASSESSMENT: Posterior dislocation of the left hip. PLAN: Patient to undergo relocation of the left hip under anesthesia. If the relocation is unevent ful, she may be re-discharged. If not, she will be admitted for more definitive surgery. /[id number]/MODL
[2016-09-12] MEDS: ACETAMINOPHEN 325 MG TAB PO SCH (18:04)
[2016-09-12] MEDS: CARVEDILOL 6.25 MG TAB PO SCH (18:06)
[2016-09-12] MEDS: FAMOTIDINE 20 MG TAB PO SCH (20:38)
[2016-09-12] MEDS: HYDROCODONE/APAP 10/325 TAB PO PRN (20:38)
[2016-09-13] MEDS: ACETAMINOPHEN 325 MG TAB PO SCH ×4 (00:05→18:06)
[2016-09-13] MEDS: HYDROCODONE/APAP 10/325 TAB PO PRN ×4 (00:47→18:09)
[2016-09-13 05:39] LABS: HEMOGLOBIN 8.8 g/dL (12.6-16.3)
[2016-09-13 06:06] LABS: CALCIUM 9.3 mg/dL (8.5-10.4); CARBON DIOXIDE 24 mEq/l (22-31); CHLORIDE 101 mEq/L (97-110); CREATININE 1.2 mg/dL (0.6-1.0); GLOMERULAR FILTRATION RATE 42; GLUCOSE 90 mg/dL (70-100); SODIUM 135 mEq/L (134-144)
[2016-09-13 06:17] LABS: ANION GAP 10 mEq/L (8-16); POTASSIUM 3.9 mEq/L (3.5-5.2)
[2016-09-13] MEDS ORDERED: PANTOPRAZOLE SODIUM 40 MG TAB PO PRN (09:00)
[2016-09-13] MEDS: buPROPion XL 150 MG TAB PO SCH (10:11)
[2016-09-13] MEDS: BENAZEPRIL HCL 20 MG TAB PO SCH (10:11)
[2016-09-13] MEDS: predniSONE 5 MG TAB PO SCH (10:12)
[2016-09-13] MEDS: FAMOTIDINE 20 MG TAB PO SCH (10:12)
[2016-09-13] MEDS: CARVEDILOL 6.25 MG TAB PO SCH ×2 (10:17→18:06)
[2016-09-13 12:50] LABS: INR 1.09 (0.83-1.16)
[2016-09-13] MEDS ORDERED: ceFAZolin 1 GM/5 ML SYR ONE (13:39)
[2016-09-13] MEDS ORDERED: MIDAZOLAM 2 MG/2 ML VIAL ONE (14:25)
[2016-09-13] MEDS ORDERED: fentaNYL 100 MCG/2 ML INJ ONE ×3 (14:40→17:33)
[2016-09-13] MEDS ORDERED: PROPOFOL/EMULSION 500 MG/50 ML BOTTLE IV ONE (14:40)
[2016-09-13] MEDS ORDERED: ROPI/epiNEPH/KETOROLAC/morphINE JOINT COCKTAIL IU ONE (15:00)
[2016-09-13] MEDS ORDERED: ROCURONIUM 50 MG/5 ML VIAL ONE ×2 (15:53→15:54)
[2016-09-13] MEDS ORDERED: SUGAMMADEX SODIUM 200 MG/2 ML VIAL IVP ONE (16:41)
[2016-09-13] MEDS ORDERED: ONDANSETRON 4 MG/2 ML VIAL ONE (16:42)
--- NOTE | 2016-09-13 16:53 | POSTOPPROG ---
Post Op Note Date of Operation: 09/13/16 Surgeon: Nini Sharp Advertiser: Babar Sharp Anesthesia: GET(General Endotracheal) Pre-op Diagnosis: Left hip recurrent dislocation Post-op Diagnosis: left hip recurrent dislocation Procedure: Left hip acetabular revision with constrained cup Findings: as above, please see full dication for details Inf/Abcess present in the surg proc area at time of surgery?: No Depth: Deep Incisional (Fascial)
[2016-09-13] MEDS ORDERED: BISACODYL 10 MG SUPP PR PRN (16:54)
[2016-09-13] MEDS ORDERED: PHARMACY PAIN CONSULT 1 EA MISC PRN (16:54)
[2016-09-13] MEDS ORDERED: MAGNESIUM HYDROXIDE 30 ML UDCUP PO PRN (16:54)
[2016-09-13] MEDS ORDERED: LACTULOSE 20 GM/30 ML UDCUP PO PRN (16:54)
--- NOTE | 2016-09-13 17:09 | SOAPPROG ---
SOAP Progress Note Assessment/Plan: Assessment/Plan: L Hip recurrent dislocation s/p closed reduciton on 09/12/2016 s/p Left hip acetabular revision w/ constrained cup, POD#0 -Cont PT/OT, post hip precautions -Cont SCDs/TEDs for VTE mechanical prophylaxis -Pt will start Lovenox for VTE chemoprophylaxis, will continue for 21 days post op 09/13/16 17:07 Objective: Vital Signs Temp Pulse Resp BP Pulse Ox 37.0 C 63 16 139/82 H 97 09/13/16 11:51 09/13/16 11:51 09/13/16 11:51 09/13/16 11:51 09/13/16 11:51 Laboratory Results 09/13/16 05:28 09/13/16 05:28 09/12/16 09/13/16 09/14/16 05:59 05:59 05:59 Intake Total 1385 Output Total 550 100 Balance 835 -100 PT 14.0 SEC (12.0-15.0) 09/13/16 12:15 INR 1.09 (0.83-1.16) 09/13/16 12:15 Post op radiographs reviewed - read by Dr. Pérez as loose cup retainer. Discussed findings with Dr. Desouza, in his view, this is a normal appearance of the constrained liner put in for this particular case. He is pleased with the overall alignment and positioning. ICD10 Worksheet Patient Problems: Problems Problem Status Onset Hip dislocation, left Acute Arthritis, rheumatoid Acute Constipation Acute Dislocation of hip, left, closed Acute Femur fracture Acute Left hip pain Acute MRSA (methicillin resistant Staphylococcus aureus) Acute 01/18/16
--- NOTE | 2016-09-13 17:45 | GOP ---
[f rep st] OPERATIVE REPORT DATE OF OPERATION: 09/12/2016 SURGEON: Jesus Desouaz MD SASH CLAMP OPERATOR: Nini Sharp PA-C. ANESTHESIA: General. PREOPERATIVE DIAGNOSIS: Recurrent dislocation, left total hip. POSTOPERATIVE DIAGNOSIS: Recurrent dislocation, left total hip. PROCEDURE PERFORMED: Revision left total hip arthroplasty to a constrained hip. FINDINGS: DESCRIPTION OF PROCEDURE: Patient taken to the operating room, administered general anesthesia, randi racheal in the right lateral decubitus position. Had her left hip and lower extremity prepped and drape d in normal sterile fashion. Previous incision was utilized. It was posterolateral incision. It w as carried through dermal subcutaneous tissues. Sharp and blunt dissection performed down to the IT band. This was split longitudinally, extended proximally over the greater trochanter. The externa l rotators were taken down off the posterior aspect of the femoral neck. Capsule was incised. Once we could visualize the head, we dissected from the inside out, protecting the sciatic nerve. The c apsule was reflected. A portion of the scar tissue in the posterior capsule was excised. The head was then dislocated. Using a bone tamp, the head was knocked off the trunnion. The cup liner was t hen removed from the cup using an osteotome to jar it loose and subsequently grabbing it with a Dia er. The cup edges were trimmed of any surrounding soft tissue. The capsule was reflected slightly further to give us exposure. The femoral neck and segment was then externally rotated to allow us t o bring this anteriorly over the edge of the cup. Retractors were put into position. The cup was t hus exposed. The [place] Trident 0-degree constrained acetabular insert size E was then impacted in to the cup. We assessed its stability with a [place] elevator. It was felt to be stable. The LFIT V 40 femoral head was impacted onto the trunnion. The head was then reduced into the constrained cup. We got good snap fit. We put the hip through A range of motion. It was felt to be stable. Lavag e performed with normal saline. Closure was performed of the posterior hip capsule and external rot ators with a 0 Vicryl suture, followed by closure of the iliotibial band with a 0 Vicryl suture foll owed by closure of the subcutaneous tissue with 2-0 Vicryl suture, followed by closure of the dermis with carl. Abduction pillow was utilized. The patient tolerated the procedure well and was tra nsferred back to recovery in stable condition. No operative complications. IMPLANTS: [place] LFIT TM V40 femoral head, 22.2 mm outer diameter, +0 offset, Trident 0-degree con strained acetabular insert size E. COMPLICATIONS: None. /[id number]/MODL
[2016-09-13] MEDS: LR 1,000 ML IV SCH (18:08)
[2016-09-13] MEDS: SENNOSIDES/DOCUSATE SODIUM TAB PO SCH (21:32)
[2016-09-13] MEDS ORDERED: ceFAZolin 2 GM/DEXTROSE 100 ML IV SCH (22:00)
[2016-09-14] MEDS: ACETAMINOPHEN 325 MG TAB PO SCH ×2 (00:16→05:21)
[2016-09-14] MEDS: HYDROCODONE/APAP 10/325 TAB PO PRN ×3 (02:23→18:03)
[2016-09-14 05:37] LABS: HEMATOCRIT 26.2 % (38.0-47.0)
--- NOTE | 2016-09-14 05:47 | SOAPPROG ---
SOAP Progress Note Assessment/Plan: Assessment/Plan: L Hip recurrent dislocation s/p closed reduciton on 09/12/2016 s/p Left hip acetabular revision w/ constrained liner, POD#1 -Cont current pain regimen, encourage PO meds as tolerated -Cont PT/OT, post hip precautions -Cont SCDs/TEDs for VTE mechanical prophylaxis -Pt ok to begin Lovenox today for VTE chemoprophylaxis, will continue for 21 days post op -Likely d/c to SNF/rehab facility 09/14/16 05:45 09/14/16 05:51 Subjective: Pt seen at bedside today. She has no reports of significant pain this am, and states she slept well overnight. She notes she has not been up out of bed. The pt states she is tolerating her medications and diet well. Surgical finding and postoperative films were reviewed with the patient today. She has no additional concerns or complaints at this time. Nurses report significant drainage overnight, and had dressing changed once. Ok to continue to reinforce as needed, and may try compressive lindsey bandage if drainage does not slow. No additional concerns overnight. Objective: Vital Signs Temp Pulse Resp BP Pulse Ox 36.3 C 68 16 133/77 H 94 09/14/16 04:00 09/14/16 04:00 09/14/16 04:00 09/14/16 04:00 09/14/16 04:00 Laboratory Results 09/14/16 05:25 09/13/16 05:28 09/12/16 09/13/16 09/14/16 05:59 05:59 05:59 Intake Total 1385 2200 Output Total 550 400 Balance 835 1800 PT 14.0 SEC (12.0-15.0) 09/13/16 12:15 INR 1.09 (0.83-1.16) 09/13/16 12:15 Pt seen at bedside, awoken for exam. MRSA precautions in place from previous infection, no current. A&Ox3, appropriate mood and affect. Pleasant and cooperative with exam. Exam of LLE reveals intact surgical dressing, recently changed, CDI. Intact carl, no drain in place. Thigh compartment is supple. Pt moves leg and foot well. SCDs and TEDs in place. Post calves are NTTP, no palpable vascular cords, neg Levar's bilat. DNVI BLE. ICD10 Worksheet Patient Problems: Problems Problem Status Onset Hip dislocation, left Acute Arthritis, rheumatoid Acute Constipation Acute Dislocation of hip, left, closed Acute Femur fracture Acute Left hip pain Acute MRSA (methicillin resistant Staphylococcus aureus) Acute 01/18/16
[2016-09-14] MEDS ORDERED: ACETAMINOPHEN 325 MG TAB PO PRN (06:09)
[2016-09-14] MEDS: predniSONE 5 MG TAB PO SCH (09:54)
[2016-09-14] MEDS: CARVEDILOL 6.25 MG TAB PO SCH ×2 (09:54→18:04)
[2016-09-14] MEDS: BENAZEPRIL HCL 20 MG TAB PO SCH (09:54)
[2016-09-14] MEDS: buPROPion XL 150 MG TAB PO SCH (09:54)
[2016-09-14] MEDS: FAMOTIDINE 20 MG TAB PO SCH (09:54)
[2016-09-14] MEDS: ENOXAPARIN 30 MG/0.3 ML SYR SC SCH (09:55)
[2016-09-14] MEDS: SENNOSIDES/DOCUSATE SODIUM TAB PO SCH ×2 (09:55→22:16)
--- NOTE | 2016-09-14 15:17 | HOSPPROG ---
Hospitalist Progress Note Assessment/Plan: 89-year-old female who is postop stabilization of her left femur on 09/[address] Desouza. She had suffered from recurrent dislocations of her left hip and has now been stabilized surgically. -left hip stabilization with a restraining cup, postop day 1.. Patient appears to be doing well per surgical note and examination. There is some pain but the patient has been up and ambulated with a walker with assistance. -hypertension: Currently in good control today. -proximal atrial fibrillation: Rate is currently in good control. She is anticoagulated only with aspirin because she is a fall risk. This was a decision between she and Dr. Obie Odonnell -chronic kidney disease with baseline creatinine 1.4-1.5. She is currently at her baseline and stable. -asthma: There is no wheezing today nor shortness of breath. She appears well compensated. I have suggested the use of an incentive spirometer until she is more ambulatory. Overall the patient is doing well at this time and is stable. We will continue to follow along with you. Disposition should be to rehab or SNF. Time for this disposition will be per surgery. Subjective: Reports she is feeling better and there is less pain in her hip. No complaints of chest pain shortness of breath nausea or vomiting. Objective: Vital Signs Temp Pulse Resp BP Pulse Ox 36.3 C 71 14 109/48 L 91 L 09/14/16 11:56 09/14/16 11:56 09/14/16 11:56 09/14/16 11:56 09/14/16 11:56 Laboratory Results 09/14/16 05:25 09/13/16 05:28 09/13/16 09/14/16 09/15/16 05:59 05:59 05:59 Intake Total 1385 2600 Output Total 550 500 Balance 835 2100 PT 14.0 SEC (12.0-15.0) 09/13/16 12:15 INR 1.09 (0.83-1.16) 09/13/16 12:15 - Time Spent With Patient Time Spent with Patient: greater than 35 minutes Time Spent with Patient: Greater than 35 minutes spent on this patients care, greater than 50% of time spent counseling, educating, and coordinating care regarding the above mentioned plan. - Pending Discharge Pending Discharge Within 24 Hours: No Pending Discharge Within 48 Hours: No - Physical Exam Constitutional: no apparent distress Eyes: PERRL Ears, Nose, Mouth, Throat: moist mucous membranes Cardiovascular: regular rate and rhythym, systolic murmur Respiratory: no respiratory distress, no rales or rhonchi, clear to auscultation Gastrointestinal: normoactive bowel sounds Genitourinary: no bladder fullness Skin: warm Musculoskeletal: other (Tenderness about the left hip region and surgical dressing is in place without signs of ecchymosis. Distal pulses are 2+ skin is cool and PET capillary refill is slightly slow) Neurologic: AAOx3, CN II-XII Intact ICD10 Worksheet Patient Problems: Problems Problem Status Onset Femur fracture Acute Left hip pain Acute Constipation Acute Arthritis, rheumatoid Acute Dislocation of hip, left, closed Acute MRSA (methicillin resistant Staphylococcus aureus) Acute 01/18/16 Hip dislocation, left Acute
[2016-09-15] MEDS: HYDROCODONE/APAP 10/325 TAB PO PRN ×4 (03:59→22:48)
[2016-09-15 05:11] LABS: HEMATOCRIT 22.5 % (38.0-47.0)
[2016-09-15] MEDS ORDERED: CALCIUM CARBONATE 500 MG CHEWABLE TAB PO PRN (05:12)
[2016-09-15 05:30] LABS: ANION GAP 11 mEq/L (8-16); CARBON DIOXIDE 23 mEq/l (22-31); CHLORIDE 99 mEq/L (97-110); CREATININE 1.4 mg/dL (0.6-1.0); GLOMERULAR FILTRATION RATE 35; GLUCOSE 97 mg/dL (70-100); POTASSIUM 4.1 mEq/L (3.5-5.2); SODIUM 133 mEq/L (134-144)
[2016-09-15] MEDS: CARVEDILOL 6.25 MG TAB PO SCH ×2 (08:04→16:55)
[2016-09-15] MEDS: FAMOTIDINE 20 MG TAB PO SCH (08:04)
[2016-09-15] MEDS: SENNOSIDES/DOCUSATE SODIUM TAB PO SCH ×2 (08:05→20:21)
[2016-09-15] MEDS: buPROPion XL 150 MG TAB PO SCH (08:05)
[2016-09-15] MEDS: BENAZEPRIL HCL 20 MG TAB PO SCH (08:05)
[2016-09-15] MEDS: predniSONE 5 MG TAB PO SCH (08:06)
[2016-09-15] MEDS: POLYETHYLENE GLYCOL 3350 17 GM PKT PO PRN (08:07)
[2016-09-15] MEDS: ENOXAPARIN 30 MG/0.3 ML SYR SC SCH ×2 (08:07→11:21)
[2016-09-15 09:36] LABS: HEMATOCRIT 24.3 % (38.0-47.0); HEMOGLOBIN 7.6 g/dL (12.6-16.3)
--- NOTE | 2016-09-15 13:28 | SOAPPROG ---
SOAP Progress Note Assessment/Plan: Assessment:Stable orthopedically Plan:Continue PT. Consider transfusion- per hospitalist 09/15/16 13:26 Subjective: Pain well controlled Objective: Some bloody drainage into dressing. No erythema. Vital Signs Temp Pulse Resp BP Pulse Ox 36.9 C 105 H 14 85/57 L 97 09/15/16 11:47 09/15/16 11:47 09/15/16 11:47 09/15/16 11:47 09/15/16 11:47 Laboratory Results 09/15/16 09:25 09/15/16 04:45 09/14/16 09/15/16 09/16/16 05:59 05:59 05:59 Intake Total 2600 200 Output Total 500 Balance 2100 200 PT 14.0 SEC (12.0-15.0) 09/13/16 12:15 INR 1.09 (0.83-1.16) 09/13/16 12:15 ICD10 Worksheet Patient Problems: Problems Problem Status Onset Hip dislocation, left Acute Arthritis, rheumatoid Acute Constipation Acute Dislocation of hip, left, closed Acute Femur fracture Acute Left hip pain Acute MRSA (methicillin resistant Staphylococcus aureus) Acute 01/18/16
--- NOTE | 2016-09-15 13:44 | HOSPPROG ---
Hospitalist Progress Note Assessment/Plan: The patient is a 89-year-old female with PMH paroxysmal atrial fibrillation, hypertension who was admitted for recurrent dislocations of the left hip and underwent stabilization of left femur by Dr. Desouza on 09/13. ASSESSMENT/PLAN: Recurrent dislocation of left hip, status post surgical stabilization with restraining cup -POD 2 -prn pain meds -PT/OT -Surg wound oozing minimal blood. Hypotensive episode -possibly had a vasovagal episode this AM -blood pressure normalized with immediate IV fluids -H/H rechecked, was above 7. -No signs of acute bleeding. -Held BP meds. PAF -AC only w/ ASA bc high fall risk, per Dr. Cintron her outpt [employer]. CKD, unknown stage -at baseline creatinine which is 1.4-1.5 -Cr may bump up tomorrow with the hypotensive episode she had today, ATN Asthma, controlled -ISU -O2/SVNs as needed. VTE prophylaxis: Lovenox Code Status: Full code Disposition: MedSurg with discharge in the next day or 2 if okay with surgery ____ SUBJECTIVE: Patient had a vasovagal type episode this morning after she finished having a bowel movement on the commode. Episode lasted no more than 2 minutes and she woke up. She was found to be very hypotensive and was fluid resuscitated. She denied pain. OBJECTIVE: Physical Exam: General: The patient is a thin female who is alert and in no acute distress. HEENT: normocephalic, extraocular movements intact, conjunctivae clear. Mucous membranes moist. Neck: trachea midline, no visible masses. Abd: soft and nondistended. Bowel sounds present. Non tender throughout. Musculoskeletal: Normal muscle tone/bulk. Dressing left hip CDI. Neuro: cranial nerves II XII grossly intact. Intact gross motor and sensory function. Psych: Appropriate mood and appropriate affect. Skin: Mild pallor. No petechiae. Heme/lymph: No peripheral edema at bilateral lower extremities. Labs/Imaging/Other Tests: Personally reviewed/interpreted. Objective: Vital Signs Temp Pulse Resp BP Pulse Ox 36.9 C 105 H 14 85/57 L 97 09/15/16 11:47 09/15/16 11:47 09/15/16 11:47 09/15/16 11:47 09/15/16 11:47 Laboratory Results 09/15/16 09:25 09/15/16 04:45 09/14/16 09/15/16 09/16/16 05:59 05:59 05:59 Intake Total 2600 200 Output Total 500 Balance 2100 200 PT 14.0 SEC (12.0-15.0) 09/13/16 12:15 INR 1.09 (0.83-1.16) 09/13/16 12:15 ICD10 Worksheet Patient Problems: Problems Problem Status Onset Hip dislocation, left Acute Arthritis, rheumatoid Acute Constipation Acute Dislocation of hip, left, closed Acute Femur fracture Acute Left hip pain Acute MRSA (methicillin resistant Staphylococcus aureus) Acute 01/18/16
[2016-09-15] MEDS: LR 1,000 ML IV SCH (14:06)
[2016-09-15] MEDS ORDERED: NS 1,000 ML IV ONE (17:00)
[2016-09-16] MEDS: LR 1,000 ML IV SCH (03:08)
[2016-09-16] MEDS: HYDROCODONE/APAP 10/325 TAB PO PRN ×3 (04:59→14:17)
[2016-09-16] MEDS: FAMOTIDINE 20 MG TAB PO SCH (08:37)
[2016-09-16] MEDS: buPROPion XL 150 MG TAB PO SCH (08:38)
[2016-09-16] MEDS: BENAZEPRIL HCL 20 MG TAB PO SCH (08:38)
[2016-09-16] MEDS: SENNOSIDES/DOCUSATE SODIUM TAB PO SCH (08:39)
[2016-09-16] MEDS: POLYETHYLENE GLYCOL 3350 17 GM PKT PO PRN (08:40)
[2016-09-16] MEDS: predniSONE 5 MG TAB PO SCH (08:40)
[2016-09-16] MEDS: CARVEDILOL 6.25 MG TAB PO SCH (08:41)
--- NOTE | 2016-09-16 10:55 | PDIAF ---
- Diagnosis Diagnosis: Dislocated L hip, s/p surgical stabilization with cup Code Status: Full Code - Medication Management Discharge Medications: Medications to Continue on Transfer Aspirin [Aspirin 81mg (*)] 81 mg PO DAILY 09/12/16 [Last Taken 09/11/16] Benazepril HCl [Lotensin (*)] 20 mg PO DAILY 09/12/16 [Last Taken 09/12/16] Carvedilol [Coreg (*)] 6.25 mg PO BID 09/12/16 [Last Taken 09/12/16] Cholecalciferol (Vitamin D3) [Vitamin D3] 1,000 unit PO DAILY 09/12/16 [Last Taken Unknown] FOLIC ACID 0.4 mg PO DAILY 09/12/16 [Last Taken 09/11/16] HYDROcodone/APAP 10/325 [[place] 10/325 (*)] 1 tab PO Q4H PRN 09/12/16 [Last Taken 09/12/16] Herbals/Supplements -Info Only 1 ea PO DAILY 09/12/16 [Last Taken Unknown] Lansoprazole [Prevacid] 15 mg PO DAILY PRN 09/12/16 [Last Taken Unknown] Tears/Dextran 70/Hypromellose [Natural Balance Tears (*)] 1 drop EACHEYE Q2 PRN 09/12/16 [Last Taken Unknown] Vitamin B Complex [B Complex] 1 each PO DAILY 09/12/16 [Last Taken 09/11/16] amLODIPine BESYLATE [Norvasc 2.5 mg (*)] 2.5 mg PO DAILY 09/12/16 [Last Taken ] buPROPion XL [Wellbutrin 150mg XL] 150 mg PO DAILY 09/12/16 [Last Taken 09/12/16 ] predniSONE 2.5 mg PO DAILY 09/12/16 [Last Taken 09/12/16] Discharge Medications: Refer to the Discharge Home Medication list for PRN reason. - Orders Services needed: Home Care, [employer], Physical Therapy, Occupational Therapy Home Care Face to Face: I certify that this patient was under my care and that I had the required [id number] encounter meeting the encounter requirements on the discharge day. My findings support the fact that the patient is homebound as defined in CMS Chapter 7 Medicare Benefits Manual 30.1.1, The condition of the patient is such that there exists a normal inability to leave home and consequently, leaving home would require a considerable and taxing effort. Diet Recommendation: no restrictions on diet Diet Texture: Regular Texture Diet Activity/Weight Bearing Restrictions: weight bearing activity as tolerated, ambulate with walker - Follow Up Care Current Providers and Referrals: Francine Chapin MD [Primary Care Provider] - As per Instructions Jesus Desouza MD [Medical Doctor] - (Pt will follow up w/ Dr. Desouza 10-14 days postoperatively, or sooner with any additional concerns or complaints. She is encouraged to contact the office as soon as possible to schedule this appointment.)
[2016-09-16 12:47] VITALS: BP 138/75; PULSE 62; RESP 18; TEMP 98.4; O2SAT 93
--- NOTE | 2016-09-16 15:00 | SOAPPROG ---
SOAP Progress Note Assessment/Plan: Assessment:Stable orthopedically Plan: ok for discharge with home care/ home PT 09/15/16 13:26 09/16/16 14:58 Subjective: Very minimal pain, 08/24 Objective: wound clean and dry, no erythema or drainage. Distal nv normal Vital Signs Temp Pulse Resp BP Pulse Ox 36.9 C 62 18 138/75 H 93 09/16/16 11:04 09/16/16 11:04 09/16/16 11:04 09/16/16 11:04 09/16/16 11:37 Laboratory Results 09/15/16 09:25 09/15/16 04:45 09/15/16 09/16/16 09/17/16 05:59 05:59 05:59 Intake Total 900 400 Output Total 200 Balance 900 200 PT 14.0 SEC (12.0-15.0) 09/13/16 12:15 INR 1.09 (0.83-1.16) 09/13/16 12:15 ICD10 Worksheet Patient Problems: Problems Problem Status Onset Hip dislocation, left Acute Arthritis, rheumatoid Acute Constipation Acute Dislocation of hip, left, closed Acute Femur fracture Acute Left hip pain Acute MRSA (methicillin resistant Staphylococcus aureus) Acute 01/18/16
== END 2016-09-16 15:42 | disposition home health service (06) | DRG 470 ==
LOC: EDUNIT# → F3N 13:17
PROVIDERS: ADMIT Orthopaedic Surgery Sports Medicine; ATTEND Orthopaedic Surgery Sports Medicine
PROC: 0SSBXZZ Reposition Left Hip Joint, External Approach (ICD-10-PCS; 2016-09-12)
PROC: 0SRS0JZ Replacement of Left Hip Joint, Femoral Surface with Synthetic Substitute, Open Approach (ICD-10-PCS; 2016-09-12)
PROC: 0SRE0JZ Replacement of Left Hip Joint, Acetabular Surface with Synthetic Substitute, Open Approach (ICD-10-PCS; principal; 2016-09-12 12:00)
DX: T84.021A Dislocation of internal left hip prosthesis, initial encounter (principal); D64.9 Anemia, unspecified; I12.9 Hypertensive chronic kidney disease with stage 1 through stage 4 chronic kidney disease, or unspecified chronic kidney disease; N18.9 Chronic kidney disease, unspecified; I48.0 Paroxysmal atrial fibrillation; Z96.652 Presence of left artificial knee joint; Z95.0 Presence of cardiac pacemaker
CPT/HCPCS: 97116-GP; 97161-GP; 97165-GO; 97530-GP; 97535-GO; G8978-GP-CL; G8979-GP-CJ; G8980-GP-CI; G8987-GO-CJ; G8988-GO-CI; J0171; J0690; J1650; J1885; J2250; J2405; J2704; J2795; J3010